=== PATIENT | female | born 1965 | race Caucasian/White ===

== ENCOUNTER 2016-08-07 17:25 | Emergency (ER) | payer OTHER ==
[~2016-08-07] VITALS: Ht 162.6 cm; Wt 52.6 kg
--- NOTE | 2016-08-07 18:49 | ED GI/GU/ABDOMINAL COMPLAINT ---
History of Present Illness General Chief Complaint: Abdominal Pain/Flank Pain Stated Complaint: GALLBLADDER PAIN, UTI Source: patient Exam Limitations: no limitations Vital Signs & Intake/Output Vital Signs & Intake/Output Vital Signs Date Time Temp Pulse Resp B/P Pulse O2 O2 Flow FiO2 Ox Delivery Rate 08/07 2054 97.6 80 16 117/69 98 Room Air 08/070 Room Air 08/07 1756 98.2 69 20 117/71 97 Room Air ED Intake and Output 08/08 0000 08/07 1200 Intake Total 1000 Output Total Balance 1000 Intake, IV 1000 Patient 116 lb Weight Allergies Coded Allergies: Sulfa (Sulfonamide Antibiotics) (Intermediate, HIVES 08/07/16) Reconcile Medications Acetaminophen (Mapap) 500 MG TABLET 2 TAB PO PRN PAIN (Reported) Estradiol 0.075 MG/24 HOUR PATCH.TDWK 1 PATCH TOP QFRI HRT (Reported) Fluconazole (Diflucan) 150 MG TABLET 1 TAB PO ONCE YEAST INFECTION Oxycodone HCl/Acetaminophen (Percocet 5-325 MG Tablet) 5 MG-325 MG TABLET 1 TAB PO BID PRN PAIN Triage Note: TRIAGE: PT TO ER C/C PAIN TO L SIDE UNDER BREAST AND ?VAGINAL INFECTION WITH PAIN X 2 YEARS. PAIN UNDER L BREAST SINCE LAST NIGHT. PAINS ARE CONSTANT SINCE ONSET. WAS DIAGNOSED WITH THE FLU 3 DAYS BEFORE GENI. DENIES COUGHING AT PRESENT. +NAUSEA, -VOMITING. STATES FELT FREEZING COLD AND THINKS SHE HAD A TEMP, TOOK MOTRIN AND FELT LIKE SHE WAS BREAKING A FEVER. Triage Nurses Notes Reviewed? yes ? N Is pt currently ? No (N) Duration: constant Timing: remote history Quality/Severity: sharpness, severe, stabbing Severity Numbers: 10 Location: left upper quadrant Radiation: no radiation Activities at Onset: none HPI: Patient is a 50-year-old female with a past medical history of fibromyalgia who presents emergency room with a 10 year history of right BEHIND THE knee pain and swelling in which patient states that this week she had a follow-up ultrasound for worsening pain and as she states impingement of the nerve is causing the have radicular pain in which she states that there is concern that a biopsy is THE next step for her symptoms which is currently is pending. Patient also states that she's had a 10 year history of generalized abdominal pain in which she states that she had an ultrasound showing concerns of gallstones with no concerns of infection. Patient states that the primary care doctor who is Dr. BACH from [place] advised patient to present to emergency room with concerns of worsening left-sided upper quadrant pain that began in the last 24 hours. Patient has had mild nausea however can tolerate eating with no change in symptoms. Patient also has had a two-year history of urinary tract infection complaints and which in the past year she's been on 15 antibiotics in which patient states that she just finished a course of penicillin and has been complaining of recurrent dysuria and vaginal irritation and itching sensation. Patient currently sexually active with same partner. Patient denies fevers but states he has chills. Denies any chest pain arm and jaw pain active pain vaginal discharge. Denies any hematuria. Patient has taken Motrin and Tylenol with minimal relief of symptoms. Past History Travel History Traveled to [facility] past 21 day No Medical History Any Pertinent Medical History? see below for history Neurological: NONE EENT: NONE Cardiovascular: NONE Respiratory: NONE Gastrointestinal: NONE Hepatic: cholelithiasis, ?LIVER PROBLEM Renal: NONE Musculoskeletal: fibromyalgia, MASS ON BACK OF KNEE Psychiatric: NONE Endocrine: NONE Blood Disorders: NONE Cancer(s): NONE ANCIENT ART CURATOR/Reproductive: OVARIAN CYST Surgical History Surgical History: hysterectomy Psychosocial History What is your primary language Czech Tobacco Use: Current Daily Use Daily Tobacco Use Amount/Type: => 5 Cigarettes daily ETOH Use: denies use Illicit Drug Use: denies illicit drug use Family History Hx Contributory? No Review of Systems Review of Systems Constitutional: Reports: no symptoms. EENTM: Reports: no symptoms. Respiratory: Reports: no symptoms. Cardiovascular: Reports: no symptoms. GI: Reports: see HPI, abdominal pain. Genitourinary: Reports: see HPI. Musculoskeletal: Reports: see HPI. Skin: Reports: no symptoms. Neurological/Psychological: Reports: no symptoms. Hematologic/Endocrine: Reports: no symptoms. Immunologic/Allergic: Reports: no symptoms. All Other Systems: Reviewed and Negative Physical Exam Physical Exam General Appearance: no apparent distress, alert, comfortable Gastrointestinal: normal bowel sounds, soft, GENERALIZED POINT TENDERNESS NOTED Comments: Well-developed well-nourished person in no acute distress HEENT: Normal EENT exam, Neck: Supple, no lymphadenopathy, normal range of motion without pain or tenderness Back: Nontender, no CVA tenderness. Cardiovascular: Regular rate and rhythms no murmurs rubs or gallops, normal JVP Respiratory: Chest nontender. No respiratory distress.breath sounds clear to auscultation bilaterally Extremity: No edema, no calf tenderness to palpation, normal and equal pulses. Neuro: Alert oriented x3, motor sensory normal, Skin: No appreciable rash on exposed skin, skin is warm and dry. Psych: Mood and affect is normal, memory and judgment is normal. Core Measures ACS in differential dx? No Severe Sepsis Present: No Septic Shock Present: No Progress Differential Diagnosis: AAA, AMI, appendicitis, biliary colic, bowel obstruction , colon cancer, cholecystitis, diverticulitis, ectopic , endometritis, esophageal varices, gastritis, hepatitis, hernia, hemorrhoids, ischemic bowel, inflamm bowel dis, intrauterine , kidney stone, Louise-Irineo tear, ovarian cyst, ovarian torsion, pancreatitis, PID/cervicitis, peptic ulcer, PUD/ GERD, perforated viscous, SBO, threatened AB, UTI/pyelo Plan of Care: Orders Procedure Date/time Status LIPASE 08/07 1921 Complete AMYLASE 08/07 1921 Complete DIRECT BILIRUBIN 08/07 1920 Complete COMPREHENSIVE METABOLIC PANEL 08/07 1920 Complete CBC WITHOUT DIFFERENTIAL 08/07 1920 Complete CULTURE,URINE 08/07 1918 Active URINALYSIS 08/07 1918 Complete EKG 08/07 180 Active Laboratory Tests 08/07/161942: Amylase < 30 L, Lipase 119 08/07/161942: Anion Gap 8, Estimated GFR > 60, BUN/Creatinine Ratio 15.7, Glucose 88, Calcium 8.9, Total Bilirubin 0.3, Direct Bilirubin 0.3, AST 19, ALT 16, Alkaline Phosphatase 43, Total Protein 6.9, Albumin 3.9, Globulin 3.0, Albumin/Globulin Ratio 1.3, CBC w Diff NO MAN DIFF REQ, RBC 4.08 L, MCV 94.5, MCH 32.2 H, RDW 13.2, MPV 7.5, Gran % 45.1, Lymphocytes % 44.1, Monocytes % 6.9, Eosinophils % 3.4, Basophils % 0.5, Absolute Granulocytes 2.5, Absolute Lymphocytes 2.5, Absolute Monocytes 0.4, Absolute Eosinophils 0.2, Absolute Basophils 0, PUBS MCHC 34.1, Urinalysis LIGHT H, Urine Color YEL, Urine Clarity HAZY H, Urine pH 7.0, Ur Specific Niles 1.015, Urine Protein NEG, Urine Ketones NEG, Urine Nitrite NEG, Urine Bilirubin NEG, Urine Urobilinogen 0.2, Ur Leukocyte Esterase TRACE H, Ur Microscopic SEDIMENT EXAMINED, Urine WBC RARE, Ur Epithelial Cells MANY H, Urine Mucus FEW, Urine Hemoglobin NEG, Urine Glucose NEG Microbiology 08/07 1942 URINE ROUT: Urine Culture - RECD Patient's upon initial examination had generalized point tenderness however was in no apparent distress but stated she had 10 out of 10 severe pain. Blood work was unremarkable urinary analysis is unremarkable in which urine culture was pending. Patient had unremarkable CT scan finding. At this time there is no etiology of patient's complaints of abdominal pain however patient will be treated for concerns of yeast infection due to recent antibiotic use and concerns of vaginal pruritus and irritation. Patient declines exam Patient was given copies of all blood work and CT scan results. Patient was strongly advised to follow-up with primary care doctor and urologist she states was pending per primary care referral. Patient was given GI referral for pain if persistent as directed IN THE D/C instructions Patient was able tolerate by mouth on discharge (ANNETTE CASTELLANO,DEMETRIO) Diagnostic Imaging: Viewed by Me: CT Scan. Radiology Impression: no acute abnormality Initial ED EKG: none Comments: PRESENT AGE: 50 PATIENT ACCOUNT NO: [id number] : 63 LOCATION: [facility] ORDERING PHYSICIAN: DEMETRIO CASTELLANO SERVICE DATE: 08/07/16 EXAM TYPE: CAT - CT ABD & PELVIS W IV CONTRAST EXAMINATION: CT ABDOMEN AND PELVIS WITH CONTRAST CLINICAL INFORMATION: Nausea. History of gallstone. Generalized abdominal pain. COMPARISON: None. TECHNIQUE: Multidetector volumetric imaging was performed of the abdomen and pelvis after the IV administration of 95 mL of Optiray 320 intravenous contrast. Sagittal and coronal reformatted images were obtained on the technologist's workstation. DLP: 234.07 mGy-cm. FINDINGS: LUNG BASES: The visualized lung bases are unremarkable. LIVER, GALLBLADDER, AND BILIARY TREE: 5 mm hypodensity anterior left lobe of liver subcapsular location. 2 small to characterize. Statistically likely small hepatic cysts. No suspicious liver lesion. No intrapelvic bile duct dilatation. The gallbladder is unremarkable with no evidence of radiopaque gallstones, gallbladder wall thickening, or obvious pericholecystic inflammatory changes. Extra hepatic CBD measures 5 mm. PANCREAS: Unremarkable. SPLEEN: Unremarkable. ADRENAL GLANDS: Unremarkable. KIDNEYS AND URETERS: 1 mm nonobstructive kidney stone in the midpole the right kidney. No hydronephrosis. No ureteral stone. BLADDER: Unremarkable. GASTROINTESTINAL TRACT: Large amount of stool in the colon. No bowel obstruction. No bowel wall thickening or edema. The small bowel loops are unremarkable. The appendix is normal in size. No edema around the appendix.. ABDOMINAL WALL: No significant hernia is appreciated. LYMPH NODES: Normal. VASCULAR: Atherosclerotic vascular wall calcifications of aorta and iliac arteries. No aneurysm. PELVIC VISCERA: Uterus is absent. No adnexal abnormality. OSSEOUS STRUCTURES: Unremarkable. IMPRESSION: No acute abnormality CT scan abdomen and pelvis. Departure Departure Disposition: HOME OR SELF CARE Condition: Stable Clinical Impression Primary Impression: Abdominal pain Secondary Impressions: Yeast infection Referrals: BHUPENDRA ANDRADE,CELINA ASHBY MD,ROBERTA Herrera (PCP/Family) Additional Instructions: As discussed begin the prescription of Percocet for breakthrough pain relief. Begin the prescription of Diflucan FOR YOUR symptoms. Please follow up with your primary care doctor tomorrow and your urologist as directed for your symptoms. Please provide them with the lab work and CT scan for follow-up. If abdominal pain does not improve by Saturday follow-up with internist Dr. HUIZAR. If symptoms worsen return to emergency room. Continue all HOME medications as directed. Prescriptions are waiting at [facility] pharmacy Departure Forms: Customer Survey General Discharge Information Prescriptions: Current Visit Scripts Fluconazole (Diflucan) 1 TAB PO ONCE #1 TAB Ref 1 Oxycodone HCl/Acetaminophen (Percocet 5-325 MG Tablet) 1 TAB PO BID PRN PAIN #6 TAB
[2016-08-07] MEDS ORDERED: MAPAP500 M3 PO (18:51)
[2016-08-07] MEDS ORDERED: ESTRADIOL1 EAC9 TOP (18:51)
[2016-08-07 20:14] LABS: ABSOLUTE BASOPHIL COUNT 0 /CUMM (0.0-0.2); ABSOLUTE EOSINOPHIL COUNT 0.2 /CUMM (0.0-0.7); ABSOLUTE GRANULOCYTE CT 2.5 /CUMM (1.4-6.5); ABSOLUTE LYMPH COUNT 2.5 /CUMM (1.2-3.4); ABSOLUTE MONOCYTE COUNT 0.4 /CUMM (0.10-0.60); BASOPHIL % 0.5 % (0.0-2.0); EOSINOPHIL % 3.4 % (0-5); GRANULOCYTE % 45.1 % (42.2-75.2); HEMATOCRIT 38.5 % (37-47); MEAN CORPUSCULAR HGB 32.2 PG (27.0-31.0); MEAN CORPUSCULAR HGB CONC 34.1 G/DL (33.0-37.0); MEAN CORPUSCULAR VOLUME 94.5 FL (81.0-99.0); MEAN PLATELET VOLUME 7.5 FL (7.4-10.4); PLATELET COUNT 213 /CUMM (130-400); RBC DISTRIBUTION WIDTH 13.2 % (11.5-14.5); RED BLOOD CELL CT 4.08 /CUMM (4.20-5.40); WHITE BLOOD CELL COUNT 5.6 /CUMM (4.8-10.8)
[2016-08-07 20:55] VITALS: BP 117/69
--- NOTE | 2016-08-07 21:15 | CT SCAN REPORT ---
EXAMINATION: CT ABDOMEN AND PELVIS WITH CONTRAST CLINICAL INFORMATION: Nausea. History of gallstone. Generalized abdominal pain. COMPARISON: None. TECHNIQUE: Multidetector volumetric imaging was performed of the abdomen and pelvis after the IV administration of 95 mL of Optiray 320 intravenous contrast. Sagittal and coronal reformatted images were obtained on the technologist's workstation. DLP: 234.07 mGy-cm. FINDINGS: LUNG BASES: The visualized lung bases are unremarkable. LIVER, GALLBLADDER, AND BILIARY TREE: 5 mm hypodensity anterior left lobe of liver subcapsular location. 2 small to characterize. Statistically likely small hepatic cysts. No suspicious liver lesion. No intrapelvic bile duct dilatation. The gallbladder is unremarkable with no evidence of radiopaque gallstones, gallbladder wall thickening, or obvious pericholecystic inflammatory changes. Extra hepatic CBD measures 5 mm. PANCREAS: Unremarkable. SPLEEN: Unremarkable. ADRENAL GLANDS: Unremarkable. KIDNEYS AND URETERS: 1 mm nonobstructive kidney stone in the midpole the right kidney. No hydronephrosis. No ureteral stone. BLADDER: Unremarkable. GASTROINTESTINAL TRACT: Large amount of stool in the colon. No bowel obstruction. No bowel wall thickening or edema. The small bowel loops are unremarkable. The appendix is normal in size. No edema around the appendix.. ABDOMINAL WALL: No significant hernia is appreciated. LYMPH NODES: Normal. VASCULAR: Atherosclerotic vascular wall calcifications of aorta and iliac arteries. No aneurysm. PELVIC VISCERA: Uterus is absent. No adnexal abnormality. OSSEOUS STRUCTURES: Unremarkable. IMPRESSION: No acute abnormality CT scan abdomen and pelvis.
[2016-08-07] MEDS ORDERED: DIFLUCAN150 M1 PO (21:32)
[2016-08-07] MEDS ORDERED: PERCOCET 5-3251 EACH PO (21:33)
[2016-08-15] MEDS ORDERED: MACROBID 100 M100 MG PO (21:46)
== END 2016-08-07 21:44 ==
LOC: ERH 17:25
PROVIDERS: Physician Assistant
DX: B37.3 Candidiasis of vulva and vagina (principal)
CPT/HCPCS: 74177; 81001; 87086; 93005; 93010; 96361; 96374; 96375; J2405